=== PATIENT | male | born 1940 | race Caucasian/White ===

== ENCOUNTER 2021-07-23 23:47 | Observation (INO) ==
[2021-07-24 00:24] LABS: Basophils # 0.1 K/mcL (0.0-0.2); Basophils % 0.8 %; Eosinophils # 0.3 K/mcL (0.0-0.6); Eosinophils % 2.2 %; Hematocrit 42.4 % (37.5-50.1); Hemoglobin 13.8 g/dL (12.9-16.9); Immature Granulocytes % 0.2 % (0-4); Lymphocytes # 2.5 K/mcL (0.6-4.6); Lymphocytes % 22.1 %; Mean Corpuscular HGB Conc 32.5 g/dL (31.6-35.5); Mean Corpuscular Hemoglobin 31.4 pg (28.0-33.3); Mean Corpuscular Volume 96.4 fL (83.0-100.0); Mean Platelet Volume 10.8 fL (9.4-12.4); Monocytes % 9.1 %; Neutrophils # 7.4 K/mcL (1.6-8.9); Platelet Count 223 K/mcL (140-400); Red Cell Distribution Width 12.4 % (11.5-14.5); Segmented Neutrophils % 65.6 %; White Blood Count 11.3 K/mcL (4.3-11.1)
[2021-07-24 00:38] LABS: Prothrombin Time 11.2 Seconds (9.4-12.1)
[2021-07-24 00:41] LABS: Activated Partial Thrombo Time 26.9 Seconds (26.0-36.0)
[2021-07-24 01:45] LABS: Alanine Aminotransferase 12 Units/L (7-52); Albumin 3.6 g/dL (3.5-5.7); Albumin/Globulin Ratio 1.2 (1.1-2.2); Alkaline Phosphatase 59 Units/L (34-104); Aspartate Amino Transferase 12 Units/L (13-39); BUN/Creatinine Ratio 23 (6-26); Bilirubin,Indirect 0.3 mg/dL (0.0-1.0); Bilirubin,Total 0.3 mg/dL (0.3-1.0); Blood Urea Nitrogen 30 mg/dL (8-23); Calcium 9.3 mg/dL (8.6-10.3); Carbon Dioxide 36 mEq/L (23-29); Chloride 100 mEq/L (98-107); Glucose 129 mg/dL (70-105); Magnesium 1.9 mg/dL (1.6-2.6); Osmolality,Calculated 298 (280-300); Potassium 4.5 mEq/L (3.5-5.1); Sodium 140 mEq/L (136-145); Total Protein 6.6 g/dL (6.4-8.9); eGFR For African Americans > 60 (> 60); eGFR For Non-African Americans 52 (> 60)
[2021-07-24] MEDS ORDERED: Naloxone 0.4 MG/ML INJ IVP PRN (02:54)
[2021-07-24] MEDS ORDERED: Melatonin 3 MG TABLET PO PRN (04:01)
[2021-07-24] MEDS ORDERED: *HR* HYDROcodone/Acet 5/325 mg TABLET PO PRN (04:01)
[2021-07-24] MEDS ORDERED: Acetaminophen 325 MG TABLET PO PRN (04:01)
[2021-07-24] MEDS ORDERED: Ondansetron 4 MG/2 ML VIAL IVP PRN (04:01)
[2021-07-24] MEDS ORDERED: Perflutren Lipid Microsphere 1.3 ML in 0.9 % Sodium Chloride 8.7 ML IVP PRN (04:04)
[2021-07-24] MEDS ORDERED: D5% in Water 1,000 ML IVC PRN (04:08)
[2021-07-24] MEDS ORDERED: Dextrose Gel 15 GM/37.5 ML TUBE PO PRN ×2 (04:08)
[2021-07-24] MEDS ORDERED: *HR* Dextrose 50 % in Water (Syg) 50 ML SYRINGE IVP PRN (04:08)
[2021-07-24 04:59] LABS: INR 1.1
[2021-07-24 05:02] LABS: Activated Partial Thrombo Time 32.8 Seconds (26.0-36.0)
[2021-07-24 05:07] LABS: Basophils # 0.1 K/mcL (0.0-0.2); Basophils % 0.6 %; Eosinophils # 0.2 K/mcL (0.0-0.6); Eosinophils % 2.3 %; Hematocrit 39.9 % (37.5-50.1); Hemoglobin 12.9 g/dL (12.9-16.9); Immature Granulocytes % 0.3 % (0-4); Lymphocytes # 2.4 K/mcL (0.6-4.6); Lymphocytes % 25.2 %; Mean Corpuscular HGB Conc 32.3 g/dL (31.6-35.5); Mean Corpuscular Hemoglobin 30.7 pg (28.0-33.3); Mean Platelet Volume 10.8 fL (9.4-12.4); Monocytes # 0.8 K/mcL (0.0-1.3); Monocytes % 8.5 %; Platelet Count 194 K/mcL (140-400); Red Cell Distribution Width 12.4 % (11.5-14.5); Segmented Neutrophils % 63.1 %; White Blood Count 9.5 K/mcL (4.3-11.1)
[2021-07-24 05:20] LABS: Alanine Aminotransferase 12 Units/L (7-52); Albumin 3.8 g/dL (3.5-5.7); Albumin/Globulin Ratio 1.4 (1.1-2.2); Alkaline Phosphatase 55 Units/L (34-104); Aspartate Amino Transferase 13 Units/L (13-39); BUN/Creatinine Ratio 22 (6-26); Bilirubin,Total 0.4 mg/dL (0.3-1.0); Blood Urea Nitrogen 28 mg/dL (8-23); Calcium 9.1 mg/dL (8.6-10.3); Carbon Dioxide 34 mEq/L (23-29); Chloride 101 mEq/L (98-107); Chol/HDL Ratio 2.7 (0-4.9); Cholesterol 82 mg/dL (< 200); Globulin 2.8 g/dL (2.4-3.5); Glucose 138 mg/dL (70-105); HDL Cholesterol 30 mg/dL (40-59); LDL Cholesterol,Calculated 24 mg/dL (< 100); Magnesium 1.9 mg/dL (1.6-2.6); Osmolality,Calculated 296 (280-300); Phosphorous 3.5 mg/dL (2.7-4.5); Potassium 4.3 mEq/L (3.5-5.1); Sodium 139 mEq/L (136-145); Total Protein 6.6 g/dL (6.4-8.9); Triglycerides 139 mg/dL (< 150); eGFR For African Americans > 60 (> 60); eGFR For Non-African Americans 55 (> 60)
[2021-07-24 06:28] LABS: Adenovirus Not Detected (Not Detect); Bordetella Pertussis Not Detected (Not Detect); Chlamydophila pneumoniae Not Detected (Not Detect); Coronavirus 229E Not Detected (Not Detect); Coronavirus HKU1 Not Detected (Not Detect); Coronavirus NL63 Not Detected (Not Detect); Coronavirus OC43 Not Detected (Not Detect); Human Metapneumovirus Not Detected (Not Detect); Human Rhinovirus/Enterovirus Not Detected (Not Detect); Influenza A Subtype 2009 H1 Not Detected (Not Detect); Influenza B Not Detected (Not Detect); Mycoplasma pneumoniae Not Detected (Not Detect); Parainfluenza Virus 1 Not Detected (Not Detect); Parainfluenza Virus 2 Not Detected (Not Detect); Parainfluenza Virus 3 Not Detected (Not Detect); Parainfluenza Virus 4 Not Detected (Not Detect); Respiratory Syncytial Virus Not Detected (Not Detect); SARS-CoV-2 Not Detected (Not Detect)
[2021-07-24] MEDS ORDERED: Saliva Stimulant 44.3ml BOTTLE PO PRN (07:20)
[2021-07-24] MEDS ORDERED: Ipratropium/Albuterol Neb 3 ML IH PRN (07:20)
[2021-07-24] MEDS ORDERED: Insulin LISPRO 300 UNITS/3 ML VIAL SQ SCH (07:30)
[2021-07-24] MEDS: Multivit/Ca/Min/Fe/FA 1 TAB TABLET PO SCH (09:30)
[2021-07-24] MEDS: Aspirin Enteric Coated 81 MG Tablet PO SCH (09:30)
[2021-07-24 10:37] LABS: Estimated Average Glucose 171 mg/dl; Hemoglobin A1C 7.6 %
[2021-07-24 10:44] LABS: Troponin I < 0.03 ng/mL (< 0.04)
[2021-07-24] MEDS: Insulin LISPRO 300 UNITS/3 ML VIAL SUBQ SCH (18:52)
[2021-07-25] MEDS: Insulin LISPRO 300 UNITS/3 ML VIAL SUBQ SCH ×4 (05:19→16:01)
[2021-07-25] MEDS ORDERED: Regadenoson 0.4 MG/5 ML SYRINGE IVP ONE (06:24)
[2021-07-25] MEDS: Aspirin Enteric Coated 81 MG Tablet PO SCH (10:29)
[2021-07-25] MEDS: Multivit/Ca/Min/Fe/FA 1 TAB TABLET PO SCH (10:29)
[2021-07-25] MEDS: hydrALAZINE 10 MG TABLET PO SCH ×2 (16:36→21:17)
[2021-07-25] MEDS: Isosorbide MONOnitrate (24 HR) 30 MG TAB.ER.24H PO SCH (16:36)
[2021-07-25] MEDS: Lactobacillus 1 EACH CAP.SPRINK PO SCH (21:17)
[2021-07-26 04:22] VITALS: TEMP 98.1
[2021-07-26 06:58] VITALS: BP 151/81; PULSE 61; O2SAT 97
[2021-07-26] MEDS: hydrALAZINE 10 MG TABLET PO SCH (08:48)
[2021-07-26] MEDS: Multivit/Ca/Min/Fe/FA 1 TAB TABLET PO SCH (08:48)
[2021-07-26] MEDS: Isosorbide MONOnitrate (24 HR) 30 MG TAB.ER.24H PO SCH (08:48)
[2021-07-26] MEDS: Aspirin Enteric Coated 81 MG Tablet PO SCH (08:48)
[2021-07-26] MEDS: Lactobacillus 1 EACH CAP.SPRINK PO SCH (08:48)
[2021-07-26] MEDS: Insulin LISPRO 300 UNITS/3 ML VIAL SUBQ SCH (08:55)
[2021-07-26] MEDS ORDERED: Metoprolol XL (24 HR) Succ 25 MG TAB.ER.24H PO SCH (09:00)
== END 2021-07-26 09:37 ==
LOC: EMEROOARM 23:47 → 2ANU 23:47 → SUATTDRO 07-24 01:48 → 2ANU 07-24 03:35
PROVIDERS: ADMIT Internal Medicine; ATTEND Pharmacist